=== PATIENT | female | born 2000 | race Caucasian/White ===

== ENCOUNTER 2023-04-23 19:44 | Emergency (ER) | payer BC ==
[~2023-04-23] VITALS: Ht 160 cm; Wt 54.4 kg
[2023-04-23 20:35] LABS: BASOPHILS # (AUTO) 0.1 K/uL (0.0-0.2); BASOPHILS % (AUTO) 0.5 % (0.0-2.0); EOSINOPHILS % (AUTO) 0.1 % (0.0-6.0); HEMATOCRIT 34 % (33-45); HEMOGLOBIN 11.3 g/dL (11.5-14.8); LYMPHOCYTES # (AUTO) 2.3 K/uL (0.8-4.8); LYMPHOCYTES % (AUTO) 18.5 % (20.0-44.0); MEAN CORPUSCULAR HEMOGLOBIN 32 PG (26.0-33.0); MEAN CORPUSCULAR HGB CONC 33 g/dl (31.0-36.0); MEAN CORPUSCULAR VOLUME 96 fL (82-100); MONOCYTES # (AUTO) 0.7 K/uL (0.1-1.30); MONOCYTES % (AUTO) 5.6 % (2.0-12.0); NEUTROPHILS # (AUTO) 9.3 K/uL (1.8-8.9); NEUTROPHILS % (AUTO) 75.3 % (43.0-81.0); PLATELET COUNT (AUTO) 328 K/uL (150-450); RED BLOOD CELL COUNT(AUTO) 3.57 MIL/uL (4.0-5.2); WHITE BLOOD COUNT (AUTO) 12.4 K/uL (4.3-11.0)
[2023-04-23 20:45] LABS: CALCIUM, SERUM 9.2 mg/dL (8.5-10.1); CREATININE 0.7 mg/dL (0.6-1.3); POTASSIUM 3.4 mmol/L (3.5-5.1)
[2023-04-23 21:26] LABS: APPEARANCE,URINE BLOODY (CLEAR); COLOR,URINE RED (YELLOW)
[2023-04-23 21:28] LABS: INR 1.06 (0.91-1.10); PARTIAL THROMBOPLASTIN TIME 23.6 SEC (24.3-34.3); PROTHROMBIN TIME 11.1 SECS (9.2-11.1)
[2023-04-23 21:29] LABS: PREGNANCY TEST URINE QUAL POSITIVE (NEGATIVE)
[2023-04-23] MEDS ORDERED: IV NS 0.9% 1,000 ML IV ONE (21:30)
[2023-04-23] MEDS ORDERED: MORPHINE SULFATE INJ 2 MG/ML DISP.SYRIN IV ONE (21:30)
[2023-04-23] MEDS ORDERED: MORPHINE SULFATE INJ 2 MG/ML DISP.SYRIN ONE (21:33)
[2023-04-23] MEDS ORDERED: IOHEXOL-300 100 ML VIAL IV ONE (21:37)
[2023-04-23] MEDS ORDERED: CT SWABBABLE VALVE TRANS SET 1 EA INFUS.SET MC ONE (21:38)
[2023-04-23 21:41] LABS: BACTERIA,URINE None seen /HPF (None Seen); RBC,URINE TOO NUMEROUS TO COUN /HPF (0-2); SQUAMOUS EPITHELIAL CELL,UR 0-2 /HPF (None Seen)
[2023-04-23 22:45] LABS: LACTIC ACID 1.4 mmol/L (0.4-2.0)
[2023-04-24] MEDS ORDERED: IV NS 0.9% 1,000 ML IV ONE (10:00)
[2023-04-24 11:54] VITALS: BP 82/60; TEMP 97.8; O2SAT 99
== END 2023-04-24 13:34 ==
LOC: ER 19:59
DX: N93.9 Abnormal uterine and vaginal bleeding, unspecified (principal); R10.2 Pelvic and perineal pain
CPT/HCPCS: 99291; 74177; 96374; 76856; 96361 ×2; 85025; 80048; 83605; 84703; 81001; 36415 ×2; 85730; 84702; 86850; J7030 ×2; J7050; J2270; Q9967